=== PATIENT | female | born 1975 | race Caucasian/White ===

== ENCOUNTER 2019-12-28 18:50 | Emergency (ER) | payer SELFPAY ==
[~2019-12-28] VITALS: Ht 165.1 cm; Wt 81.6 kg
[2019-12-28 18:53] VITALS: BP 164/80
--- NOTE | 2019-12-28 19:18 | NUR ---
Patient does not wish to proceed with medical care recommended by Dr. ELLIOTT. Patient given information related to possible complications, up to and including , which could occur as a result of leaving the hospital at this time. Patient verbalizes understanding of risks involved due to leaving against medical advice. Patient has signed AMA form.
== END 2019-12-28 19:20 | disposition left against medical advice (07) ==
LOC: ER 18:55
DX: T40.1X1A Poisoning by heroin, accidental (unintentional), initial encounter (principal); R45.1 Restlessness and agitation; F19.10 Other psychoactive substance abuse, uncomplicated; Z59.0 Homelessness; Y92.89 Other specified places as the place of occurrence of the external cause